=== PATIENT | female | born 1990 | race Caucasian/White ===

== ENCOUNTER 2021-08-27 18:23 | Emergency (ER) | payer OTHER ==
[~2021-08-27] VITALS: Ht 160 cm; Wt 79.4 kg
[2021-08-27 19:06] LABS: INFLUENZA A ANTIGEN Negative (Negative); INFLUENZA B ANTIGEN Negative (Negative)
[2021-08-27 19:47] VITALS: BP 145/70
[2021-08-27] MEDS ORDERED: VENTOLIN HFA 1818 GM INH (19:48)
[2021-08-27] MEDS ORDERED: FLEXERIL PO (19:48)
[2021-08-27] MEDS ORDERED: ZOFRAN ODT4 MG PO (19:48)
== END 2021-08-27 19:47 | disposition home or self-care (01) ==
LOC: M.ERS 18:23
PROVIDERS: Nurse Practitioner Family
DX: U07.1 COVID-19 (principal); Z88.0 Allergy status to penicillin; Z91.02 Food additives allergy status